=== PATIENT | female | born 1995 | race Caucasian/White ===

== ENCOUNTER 2017-11-18 18:08 | Observation (INO) | payer OTHER ==
[~2017-11-18] VITALS: Ht 165.1 cm; Wt 58.2 kg
[2017-11-18] MEDS ORDERED: PREN1TAB60 PO (18:30)
[2017-11-18 18:31] VITALS: BP 117/73
[2017-11-18] MEDS ORDERED: ONDANSETRON 2MG/ML, 2ML IVPush PRN (19:00)
[2017-11-18] MEDS: LACTATED RINGERS 1,000 ML IV SCH (19:11)
[2017-11-18] MEDS ORDERED: morphine SULFATE 10 MG/ML, 1ML ONE ×2 (19:16→23:42)
[2017-11-18] MEDS: morphine SULFATE 10 MG/ML, 1ML IVPush PRN ×3 (19:19→23:46)
[2017-11-18] MEDS: CEFAZOLIN PMX 1GM/50ML 50 ML IV SCH (21:11)
[2017-11-19] MEDS ORDERED: ONDANSETRON 4 MG TABLET ONE ×2 (02:04→08:04)
[2017-11-19] MEDS: morphine SULFATE 10 MG/ML, 1ML IVPush PRN ×3 (02:08→11:37)
[2017-11-19] MEDS: ONDANSETRON 4 MG TABLET PO PRN ×2 (02:08→08:04)
[2017-11-19] MEDS: LACTATED RINGERS 1,000 ML IV SCH ×3 (02:20→16:59)
[2017-11-19] MEDS ORDERED: morphine SULFATE 10 MG/ML, 1ML ONE (04:46)
[2017-11-19] MEDS: CEFAZOLIN PMX 1GM/50ML 50 ML IV SCH ×3 (04:49→21:16)
[2017-11-19] MEDS ORDERED: ONDANSETRON 2MG/ML, 2ML IVPush PRN (12:00)
[2017-11-19] MEDS ORDERED: ONDANSETRON 2MG/ML, 2ML ONE (12:03)
[2017-11-19] MEDS ORDERED: DIPHENHYDRAMINE 50 MG CAPSULE PO PRN (14:00)
[2017-11-19] MEDS ORDERED: PROMETHAZINE 25 MG SUPP PR PRN (14:00)
[2017-11-19] MEDS ORDERED: METOCLOPRAMIDE 5 MG/ML, 2ML ONE (20:38)
[2017-11-19] MEDS: METOCLOPRAMIDE 5 MG/ML, 2ML IVPush PRN (20:43)
[2017-11-19] MEDS ORDERED: DIPHENHYDRAMINE 25 MG CAPSULE ONE (21:12)
[2017-11-20] MEDS: LACTATED RINGERS 1,000 ML IV SCH ×3 (00:31→16:20)
[2017-11-20] MEDS: CEFAZOLIN PMX 1GM/50ML 50 ML IV SCH ×2 (05:21→12:40)
[2017-11-20] MEDS ORDERED: METOCLOPRAMIDE 5 MG/ML, 2ML ONE ×2 (08:04→16:31)
[2017-11-20] MEDS: METOCLOPRAMIDE 5 MG/ML, 2ML IVPush PRN ×2 (08:05→16:32)
[2017-11-20] MEDS: PHENAZOPYRIDINE 100 MG TABLET PO SCH ×2 (09:01→16:17)
== END 2017-11-20 18:07 | disposition home or self-care (01) ==
LOC: LDOP 18:08 → LDIP 19:26
PROVIDERS: ADMIT Obstetrics & Gynecology; ATTEND Obstetrics & Gynecology
DX: O26.893 Other specified pregnancy related conditions, third trimester (principal); N13.30 Unspecified hydronephrosis; O21.2 Late vomiting of pregnancy; N32.89 Other specified disorders of bladder; Z3A.28 28 weeks gestation of pregnancy
CPT/HCPCS: 59025; 76770; 76815; 96361; 96365; 96366; 96375; 96376; G0378; J0690; J2270; J2405; J2765; J7120; Q0162; 96360; 96374

== ENCOUNTER 2018-02-03 05:59 | Inpatient (IN) | payer OTHER ==
[~2018-02-03] VITALS: Ht 165.1 cm; Wt 65.0 kg
[~2018-02-03 05:59] MED LIST: ONDA4TAB7 PO; PREN1TAB60 PO
[2018-02-03] MEDS ORDERED: NEWBORN KIT ONE (06:01)
[2018-02-03] MEDS ORDERED: OXYTOCIN 30U/ 0.9% NaCL 500ML 0 ML ONE (06:01)
[2018-02-03] MEDS ORDERED: OXYTOCIN 30U/ 0.9% NaCL 500ML 500 ML IV PRN (06:04)
[2018-02-03] MEDS ORDERED: OXYTOCIN 30U/ 0.9% NaCL 500ML 500 ML IV ONE (06:04)
[2018-02-03] MEDS ORDERED: MISOPROSTOL 25 MCG TABLET VG PRN (06:30)
[2018-02-03] MEDS ORDERED: ONDANSETRON 2MG/ML, 2ML IVPush PRN (06:30)
[2018-02-03] MEDS ORDERED: CALCIUM CARBONATE 500 MG TAB.CHEW PO PRN (06:30)
[2018-02-03] MEDS ORDERED: FENTANYL PF 100 MCG/2ML IV PRN (06:30)
[2018-02-03 06:37] LABS: BASOPHILS # (AUTO) 0.05 x10^3/uL (0-0.3); BASOPHILS % (AUTO) 0 % (0-1); EOSINOPHILS # (AUTO) 0.23 x10^3/uL (0-0.8); EOSINOPHILS % (AUTO) 2 % (1-7); LYMPHOCYTES % (AUTO) 23 % (22-44); MD NO; MEAN CORPUSCULAR HEMOGLOBIN 30.9 pg (27.0-34.8); MEAN CORPUSCULAR HGB CONC 34.8 g/dL (32.4-35.8); MEAN CORPUSCULAR VOLUME 88.9 fL (80-100); MEAN PLATELET VOLUME 7.9 fL (7.4-10.4); MONOCYTES # (AUTO) 0.81 x10^3/uL (0-1.4); MONOCYTES % (AUTO) 6 % (2-9); NEUTROPHILS # (AUTO) 9.42 x10^3/uL (1.8-8.0); NEUTROPHILS % (AUTO) 69 % (42-75); PLATELET COUNT 307 x10^3/uL (130-400); RED BLOOD COUNT 3.78 x10^6/uL (3.82-5.3); RED CELL DISTRIBUTION WIDTH 12.2 % (9.6-15.2)
[2018-02-03] MEDS: LACTATED RINGERS 1,000 ML IV SCH (06:49)
[2018-02-03 07:01] VITALS: BP 125/88
[2018-02-03] MEDS ORDERED: MISOPROSTOL 25 MCG TABLET ONE (07:38)
[2018-02-03] MEDS: D5%-LACTATED RINGERS 1,000 ML IV SCH ×2 (14:04→22:04)
[2018-02-03] MEDS ORDERED: FENTANYL PF 100 MCG/2ML ONE ×3 (14:50→20:13)
[2018-02-03] MEDS: FENTANYL PF 100 MCG/2ML IVPush PRN ×3 (14:53→20:28)
[2018-02-03] MEDS ORDERED: ZOLPIDEM 10MG TABLET PO PRN (16:00)
[2018-02-03] MEDS ORDERED: FENTANYL/BUPIV./NS/PF 250 ML EPIDCONT SCH (16:39)
[2018-02-03] MEDS ORDERED: FENTANYL PF 500 MCG, BUPIVACAINE/PF 0.5%, 30ML 62.5 ML in SODIUM CHLORIDE 0.9% 177.5 ML EPIDCONT SCH (17:00)
[2018-02-03] MEDS: SODIUM CHLORIDE FLUSH 3ML SYRINGE IVF SCH (20:28)
[2018-02-03] MEDS ORDERED: ZOLPIDEM 5MG TABLET ONE (22:16)
[2018-02-04] MEDS ORDERED: OXYTOCIN 30U/ 0.9% NaCL 500ML 500 ML ONE ×2 (04:39→22:02)
[2018-02-04] MEDS: LACTATED RINGERS 1,000 ML IV SCH ×3 (05:10→09:04)
[2018-02-04] MEDS: D5%-LACTATED RINGERS 1,000 ML IV SCH ×4 (06:04→22:04)
[2018-02-04] MEDS ORDERED: OXYTOCIN 30U/ 0.9% NaCL 500ML 500 ML IV PRN (06:04)
[2018-02-04] MEDS ORDERED: BUPIVACAINE 0.25% ONE ×2 (08:05→15:35)
[2018-02-04] MEDS ORDERED: FENTANYL PF 100 MCG/2ML ONE ×2 (08:05→15:35)
[2018-02-04] MEDS ORDERED: ONDANSETRON 2MG/ML, 2ML ONE (08:39)
[2018-02-04] MEDS ORDERED: LIDOCAINE/PF 1.5%-EPI 1:200K, 30ML ONE (08:40)
[2018-02-04] MEDS: SODIUM CHLORIDE FLUSH 3ML SYRINGE IVF SCH ×2 (09:00→21:00)
[2018-02-04] MEDS ORDERED: LACTATED RINGERS 1,000 ML IV SCH (14:38)
[2018-02-04] MEDS ORDERED: FENTANYL/BUPIV./NS/PF 250 ML EPIDCONT SCH (14:38)
[2018-02-04] MEDS ORDERED: EPHEDRINE 50 MG/ML, 1ML IVPush PRN (15:00)
[2018-02-04] MEDS ORDERED: LACTATED RINGERS 1,000 ML IVBOLUS PRN (15:00)
[2018-02-04] MEDS ORDERED: ONDANSETRON 2MG/ML, 2ML IVPush PRN (15:00)
[2018-02-04] MEDS ORDERED: MISOPROSTOL 200 MCG TABLET ONE (21:40)
[2018-02-04] MEDS ORDERED: IBUPROFEN 600 MG TABLET ONE (22:02)
[2018-02-04] MEDS ORDERED: OXYcodone/APAP 5/325MG TABLET ONE (22:02)
[2018-02-04] MEDS ORDERED: OXYTOCIN 30U/ 0.9% NaCL 500ML 500 ML IV SCH (22:10)
[2018-02-04] MEDS: OXYcodone/APAP 5/325MG TABLET PO PRN (22:15)
[2018-02-04] MEDS: IBUPROFEN 600 MG TABLET PO PRN (22:15)
[2018-02-04] MEDS ORDERED: DOCUSATE 100 MG CAPSULE PO PRN (22:30)
[2018-02-04] MEDS ORDERED: ACETAMINOPHEN 325 MG TABLET PO PRN (22:30)
[2018-02-04] MEDS ORDERED: ONDANSETRON 2MG/ML, 2ML IV PRN (22:30)
[2018-02-04] MEDS ORDERED: MISOPROSTOL 200 MCG TABLET PR PRN (22:30)
[2018-02-04] MEDS ORDERED: METHYLERGONOVINE 0.2 MG/ML IM PRN (22:30)
[2018-02-05 00:30] VITALS: BP 126/84
[2018-02-05] MEDS: OXYcodone/APAP 5/325MG TABLET PO PRN ×5 (01:52→19:41)
[2018-02-05] MEDS: IBUPROFEN 600 MG TABLET PO PRN ×3 (04:17→18:36)
[2018-02-05 04:30] VITALS: BP 109/76
[2018-02-05 05:57] LABS: MEAN CORPUSCULAR HEMOGLOBIN 30.6 pg (27.0-34.8); MEAN CORPUSCULAR HGB CONC 34.7 g/dL (32.4-35.8); MEAN CORPUSCULAR VOLUME 88.3 fL (80-100); MEAN PLATELET VOLUME 7.7 fL (7.4-10.4); PLATELET COUNT 238 x10^3/uL (130-400); RED BLOOD COUNT 3.27 x10^6/uL (3.82-5.3); RED CELL DISTRIBUTION WIDTH 12.4 % (9.6-15.2)
[2018-02-05 06:35] LABS: MD YES
[2018-02-05 06:45] LABS: <PLATELET ESTIMATE> ADEQUATE; <PLT MORPHOLOGY> NORMAL PLT MORPH; <RBC MORPHOLOGY> NORMAL; BASOS#(MANUAL) 0.51 x10^3/uL (0-0.3); BASOS% (MANUAL) 2 % (0-1); EOS#(MANUAL) 0.51 x10^3/uL (0.0-0.8); EOS% (MANUAL) 2 % (1-7); LYMPH#(MANUAL) 3.04 x10^3/uL (1-6.1); LYMPHS% (MANUAL) 12 % (22-44); MONOS#(MANUAL) 2.02 x10^3/uL (0.3-2.7); MONOS% (MANUAL) 8 % (2-9); SEG#(MANUAL) 19.23 x10^3/uL (1.8-8); SEGS% (MANUAL) 76 % (42-75)
[2018-02-05 08:30] VITALS: BP 122/78
[2018-02-05] MEDS ORDERED: PRENATAL VIT/IRON/FA 1 EACH TABLET PO SCH (09:00)
[2018-02-05 12:16] VITALS: BP 139/80
[2018-02-05 16:20] VITALS: BP 112/74
[2018-02-05] MEDS ORDERED: MEASLES,MUMPS&RUBELLA VACC/PF 0.5 ML SQ-VACC ONE (16:30)
[2018-02-05] MEDS ORDERED: IBUP-1222 PO (18:17)
[2018-02-05] MEDS ORDERED: OXYC-302 PO (18:18)
== END 2018-02-05 20:10 | disposition home or self-care (01) | DRG 807 ==
LOC: LDIP 05:59 → 2NW 02-04 23:58
PROVIDERS: ADMIT Obstetrics & Gynecology; ATTEND Obstetrics & Gynecology
PROC: 10E0XZZ Delivery of Products of Conception, External Approach (ICD-10-PCS; principal; 2018-02-04)
PROC: 3E0R3BZ Introduction of Anesthetic Agent into Spinal Canal, Percutaneous Approach (ICD-10-PCS; 2018-02-04)
PROC: 00HU33Z Insertion of Infusion Device into Spinal Canal, Percutaneous Approach (ICD-10-PCS; 2018-02-04)
DX: O80 Encounter for full-term uncomplicated delivery (principal); Z37.0 Single live birth; Z3A.39 39 weeks gestation of pregnancy
CPT/HCPCS: 36415; J7121; 85025; 86850; 86900; G0378; J2405; J3010; J3490; J2590; J7050; J7120

== ENCOUNTER 2018-03-21 04:18 | Observation (INO) | payer OTHER ==
[~2018-03-21] VITALS: Ht 165.1 cm; Wt 53.5 kg
[~2018-03-21 04:18] MED LIST changes: +IBUP-1222 PO; +OXYC-302 PO
[2018-03-21] MEDS ORDERED: ONDANSETRON 2MG/ML, 2ML ONE (04:59)
[2018-03-21] MEDS ORDERED: MORPHINE SULFATE 4 MG/ML, 1ML ONE ×3 (04:59→08:17)
[2018-03-21] MEDS ORDERED: ONDANSETRON 2MG/ML, 2ML IVPush ONE (05:00)
[2018-03-21] MEDS ORDERED: SODIUM CHLORIDE FLUSH 10ML SYR IVF ONE ×2 (05:00→08:00)
[2018-03-21] MEDS: MORPHINE SULFATE 4 MG/ML, 1ML IVPush PRN ×6 (05:23→20:34)
--- NOTE | 2018-03-21 05:23 | NUR ---
IV ESTABLISHED, PT MEDICATED PER EMAR. 5 RIGHTS ADDRESSED. LABS DRAWN. URINE SAMPLE OBTAINED AND SENT TO LAB. PT PROVIDED WITH WARM BLANKET AND PILLOW. MONITORING EQUIPMENT APPLIED. ALL VITALS STABLE. WILL CONTINUE TO MONITOR.
[2018-03-21 05:32] LABS: HCG UR SG 1.022 (1.003-1.030)
[2018-03-21 05:33] LABS: CULTURE INDICATED? YES; MICROSCOPIC INDICATED
[2018-03-21 05:48] LABS: ALBUMIN 3.5 g/dL (3.4-5.0); ANION GAP 8 mmol/L (5-15); CALCIUM 9.1 mg/dL (8.5-10.1); CHLORIDE 109 mmol/L (98-107)
[2018-03-21 05:50] LABS: BASOPHILS # (AUTO) 0.06 x10^3/uL (0-0.3); BASOPHILS % (AUTO) 1 % (0-1); EOSINOPHILS # (AUTO) 0.46 x10^3/uL (0-0.8); EOSINOPHILS % (AUTO) 5 % (1-7); LYMPHOCYTES # (AUTO) 2.64 x10^3/uL (1-6.1); LYMPHOCYTES % (AUTO) 26 % (22-44); MD NO; MEAN CORPUSCULAR HEMOGLOBIN 28.6 pg (27.0-34.8); MEAN CORPUSCULAR HGB CONC 33.3 g/dL (32.4-35.8); MEAN CORPUSCULAR VOLUME 85.9 fL (80-100); MEAN PLATELET VOLUME 7.4 fL (7.4-10.4); MONOCYTES # (AUTO) 0.66 x10^3/uL (0-1.4); MONOCYTES % (AUTO) 7 % (2-9); NEUTROPHILS # (AUTO) 6.35 x10^3/uL (1.8-8.0); NEUTROPHILS % (AUTO) 62 % (42-75); PLATELET COUNT 324 x10^3/uL (130-400); RED BLOOD COUNT 4.59 x10^6/uL (3.82-5.3); RED CELL DISTRIBUTION WIDTH 13.3 % (9.6-15.2)
[2018-03-21 05:52] LABS: ALANINE AMINOTRANSFERASE 29 U/L (12-78); ALKALINE PHOSPHATASE 194 U/L (45-117); BILIRUBIN,TOTAL 0.3 mg/dL (0.2-1.0); CREATININE 0.72 mg/dL (0.55-1.02); TOTAL PROTEIN 7.6 g/dL (6.4-8.2)
--- NOTE | 2018-03-21 06:17 | NUR ---
DR. CORLEY AT BEDSIDE EVALUATING PT
--- NOTE | 2018-03-21 06:25 | NUR ---
PT MEDICATED PER EMAR FOR PAIN. STATES PAIN IS RETURNING. 5 RIGHTS ADDRESSED.
--- NOTE | 2018-03-21 06:27 | NUR ---
PT TO CT
[2018-03-21] MEDS ORDERED: SODIUM CHLORIDE 0.9% 1,000ML IVBOLUS ONE ×2 (06:30→08:00)
[2018-03-21] MEDS ORDERED: OMNIPAQUE 350 MG/ML, 100ML BOTTLE ONE (06:39)
--- NOTE | 2018-03-21 07:00 | NUR ---
RECEIVED REPORT. PT UP TO VOID. AMBULATORY WIHTOUT ASSIST. WAITING FOR CT AND US RESULT. IS AT BEDISDE. VSS. WARM BLANKET GIVEN.
--- NOTE | 2018-03-21 07:07 | NUR ---
REPORT TO ALLISON BOOGIE
[2018-03-21] MEDS ORDERED: CEFOTETAN PMX 1GM/50ML 50 ML IV ONE ×2 (08:00→12:30)
[2018-03-21] MEDS ORDERED: CEFTRIAXONE PMX 1GM/50ML 50 ML ONE (08:03)
[2018-03-21] MEDS ORDERED: POTASSIUM CHLORIDE 20 MEQ in D5%-0.45% NACL 1,000 ML IV ONE (08:03)
[2018-03-21] MEDS ORDERED: ESCI10TA10 PO (08:14)
[2018-03-21] MEDS ORDERED: [UNRECOGNIZED DRUG - REMARK] (08:14)
--- NOTE | 2018-03-21 08:15 | NUR ---
ABX STARTED ORDERED BY MD. MARIE. PT REQUESTS PAIN MEDICATION. VSS. WILLARD CARBONE AT BEDSIDE. CALL LIGHT IS WITHIN REACH. Addendum: 03/21/18 at 1126 by DEBBIE PT RECEIVED [id number] 1 GM IV IN ED BY THIS RN. DR. GUEVARA AWARE, NO NEW MEDICATION ORDERS AT THIS TIME.
--- NOTE | 2018-03-21 08:27 | NUR ---
MEDICATED PT FOR PAIN. IVF INFUSING. VSS. CALL LIGHT IS WITHIN REACH. WAITING FOR ROOM ASSINGNMENT.
[2018-03-21] MEDS ORDERED: ONDANSETRON 2MG/ML, 2ML IVPush PRN (08:30)
--- NOTE | 2018-03-21 09:58 | NUR ---
VSS. WAITING FOR ROOM ASSIGNMENT. CALL LIGHT IS WITHIN REACH.
[2018-03-21 11:46] VITALS: BP 117/79
[2018-03-21 15:39] VITALS: BP 120/78
[2018-03-21] MEDS ORDERED: BUPIVACAINE/PF-EPI 0.5% 1:200K ONE (17:51)
[2018-03-21] MEDS ORDERED: MIDAZOLAM 1 MG/ML, 2ML ONE (17:51)
[2018-03-21] MEDS ORDERED: FENTANYL PF 250 MCG/5ML ONE (17:52)
[2018-03-21] MEDS ORDERED: NEOSTIGMINE 1 MG/ML, 10ML ONE (17:54)
[2018-03-21] MEDS ORDERED: GLYCOPYRROLATE 0.2MG/1ML, 5ML ONE (17:54)
[2018-03-21] MEDS ORDERED: DEXAMETHASONE 4 MG/ML, 1ML ONE (17:54)
[2018-03-21] MEDS ORDERED: SUCCINYLCHOLINE 20 MG/ML, 10ML ONE (17:54)
[2018-03-21] MEDS ORDERED: CEFAZOLIN 1,000 MG ONE (17:54)
[2018-03-21] MEDS ORDERED: LIDOCAINE 2% 100MG/5ML SYRINGE ONE (17:54)
[2018-03-21] MEDS ORDERED: ROCURONIUM 10MG/ML,5ML ONE (17:54)
[2018-03-21] MEDS ORDERED: PROPOFOL 10 MG/ML, 20ML ONE (17:54)
[2018-03-21] MEDS ORDERED: BUPIVACAINE/PF-EPI 0.5% 1:200K INFIL ONE (18:25)
[2018-03-21 18:30] VITALS: BP 122/81
[2018-03-21] MEDS ORDERED: DIAZEPAM 5 MG/ML, 2ML IVPush PRN (19:00)
[2018-03-21] MEDS ORDERED: MEPERIDINE/PF 25MG/0.5ML IVPush PRN (19:00)
[2018-03-21] MEDS ORDERED: PROMETHAZINE 25 MG/ML, 1ML IV PRN (19:00)
[2018-03-21] MEDS ORDERED: FENTANYL PF 100 MCG/2ML IV PRN (19:00)
[2018-03-21] MEDS ORDERED: ONDANSETRON 2MG/ML, 2ML IV PRN (19:00)
[2018-03-21] MEDS ORDERED: ONDANSETRON ODT 8 MG PO PRN (19:00)
[2018-03-21] MEDS ORDERED: OXYcodone 5 MG/5 ML ORAL.SOL UDC PO PRN (19:00)
[2018-03-21] MEDS ORDERED: ACETAMINOPHEN 325 MG TABLET PO PRN (19:00)
[2018-03-21] MEDS ORDERED: OXYcodone 5 MG/5 ML ORAL.SOL UDC ONE (19:18)
[2018-03-21] MEDS ORDERED: MEPERIDINE/PF 25MG/ML,1ML ONE (19:18)
[2018-03-21] MEDS ORDERED: HYDROmorphone 1 MG/ML, 1ML ONE (19:27)
[2018-03-21] MEDS: HYDROmorphone 2 MG/ML, 1ML IVPush PRN ×2 (19:29→19:38)
[2018-03-21] MEDS: ONDANSETRON 2MG/ML, 2ML IVPush PRN (20:34)
[2018-03-21] MEDS ORDERED: HYDROmorphone 2 MG/ML, 1ML ONE ×2 (22:46→22:49)
[2018-03-21] MEDS ORDERED: OXYcodone/APAP 7.5/325MG TABLET ONE (22:46)
[2018-03-21] MEDS: OXYcodone/APAP 7.5/325MG TABLET PO PRN (22:53)
[2018-03-21] MEDS ORDERED: HYDROmorphone 1 MG/ML, 1ML IV PRN (23:00)
[2018-03-22 00:45] VITALS: BP 116/73
[2018-03-22] MEDS ORDERED: HYDROmorphone 2 MG/ML, 1ML ONE (01:17)
[2018-03-22] MEDS: HYDROmorphone 2 MG/ML, 1ML IVPush PRN ×3 (01:18→12:18)
[2018-03-22] MEDS: ONDANSETRON 2MG/ML, 2ML IVPush PRN (02:38)
[2018-03-22] MEDS: OXYcodone/APAP 7.5/325MG TABLET PO PRN (07:36)
[2018-03-22 07:39] VITALS: BP 97/62
[2018-03-22] MEDS ORDERED: OXYC-306 PO (10:40)
[2018-03-22] MEDS ORDERED: ONDA4TAB7 PO (10:41)
[2018-03-22 12:10] VITALS: BP 119/72
== END 2018-03-22 12:39 | disposition home or self-care (01) ==
LOC: ED 08:02 → INTOOBSV 08:03 → EDIP 08:03 → ED 08:28 → 4NOR 11:39
PROVIDERS: ADMIT Surgery; ATTEND Surgery
DX: K80.00 Calculus of gallbladder with acute cholecystitis without obstruction (principal); K82.8 Other specified diseases of gallbladder; Z87.440 Personal history of urinary (tract) infections; Z87.442 Personal history of urinary calculi
CPT/HCPCS: 36415; 47562; 74177; 76700; 80053; 81001; 81025; 83690; 85025; 87086; 88304; 96365; 96366; 96375; 96376; 99284; G0378; J0330; J0690; J1100; J1170; J2175; J2250; J2405; J2704; J2710; J3010; J3480; J3490; J7030; Q9967